=== PATIENT | male | born 1945 | race Caucasian/White ===

== ENCOUNTER 2016-11-05 08:44 | Outpatient (CLI) | payer MEDICARE, BC ==
[2016-11-05 10:12] LABS: ALT (SGPT) 21 U/L (0-55); AST (SGOT) 18 U/L (5-34); Alkaline Phosphatase 66 U/L (40-150); Bilirubin, Direct 0.2 mg/dL (0.1-0.3); Bilirubin, Total 0.4 mg/dL (0.2-1.2); LDL Cholesterol, Calculated 99 mg/dL; Protein, Total 7.2 g/dL (5.8-8.1)
== END 2016-11-05 08:45 | disposition home or self-care (01) ==
LOC: BURLAB 08:44
PROVIDERS: ATTEND Internal Medicine Cardiovascular Disease
DX: E78.00 Pure hypercholesterolemia, unspecified (principal); E66.8 Other obesity
CPT/HCPCS: 36415; 80061; 80076

== ENCOUNTER 2022-04-03 07:42 | Emergency (ER) | payer MEDICARE ==
[2022-04-03] MEDS ORDERED: Acetaminophen 500 MG TAB ONE (08:06)
== END 2022-04-03 08:55 | disposition home or self-care (01) ==
LOC: BURERS 07:42
DX: S46.001A Unspecified injury of muscle(s) and tendon(s) of the rotator cuff of right shoulder, initial encounter (principal); M19.011 Primary osteoarthritis, right shoulder; I10 Essential (primary) hypertension; E78.5 Hyperlipidemia, unspecified